=== PATIENT | female | born 1940 | race Caucasian/White ===

== ENCOUNTER 2019-03-20 22:14 | Inpatient (IN) | payer MEDICARE ==
[~2019-03-20] VITALS: Ht 162.6 cm; Wt 53.5 kg
--- NOTE | 2019-03-20 22:30 | NUR ---
Patient bib relatives for c/o weakness and urinary issues. Patient nonverbal and does not respond to command. Respiratory even and unlabored, no cough no sob. No cardiovascular distress noted.
[2019-03-20] MEDS ORDERED: OLME20TA13 PO (22:36)
[2019-03-20] MEDS ORDERED: ZOLP10TA6 PO (22:36)
[2019-03-20] MEDS ORDERED: MIRT15TA7 PO (22:36)
[2019-03-20] MEDS ORDERED: DONE5TAB34 PO (22:36)
[2019-03-20] MEDS ORDERED: LORA0.5T PO (22:36)
[2019-03-20] MEDS ORDERED: TRAZ-182 PO (22:36)
[2019-03-20] MEDS ORDERED: TRAM50TA2 PO (22:36)
[2019-03-20] MEDS ORDERED: CEFTRIAXONE 1 G VIAL ONE (22:44)
[2019-03-20] MEDS ORDERED: IV NORMAL SALINE 500 ML BAG IV ONE (22:45)
[2019-03-20] MEDS ORDERED: CEFTRIAXONE 1 G in IV DEXTROSE 5% 50 ML IV ONE (22:45)
[2019-03-20 22:57] LABS: BASOPHILS % (AUTO) 0.6 % (0.0-2.0); EOSINOPHILS % (AUTO) 0.5 % (0.0-7.0); HEMATOCRIT 34.6 % (31.2-41.9); HEMOGLOBIN 11.2 g/dL (10.9-14.3); LYMPHOCYTES # (AUTO) 1.3 K/uL (20.0-40.0); LYMPHOCYTES % (AUTO) 27.7 % (20.5-51.5); MEAN CORPUSCULAR HEMOGLOBIN 30.8 uug (24.7-32.8); MEAN CORPUSCULAR HGB CONC 33 g/dL (32.3-35.6); MEAN CORPUSCULAR VOLUME 94.9 fL (75.5-95.3); MONOCYTES # (AUTO) 0.3 K/uL (2.0-10.0); MONOCYTES % (AUTO) 6.5 % (0.0-11.0); NEUTROPHILS % (AUTO) 64.7 % (38.5-71.5); PLATELET COUNT (AUTO) 241 K/uL (179-408); RED BLOOD CELL COUNT(AUTO) 3.65 MIL/uL (3.63-4.92); WHITE BLOOD COUNT (AUTO) 4.7 K/uL (3.8-11.8)
[2019-03-20 23:04] LABS: CARBON DIOXIDE 28 mmol/L (21-32); CHLORIDE 110 mmol/L (98-107); CREATININE 1.1 mg/dL (0.6-1.3); GLUCOSE 133 mg/dL (74-106); POTASSIUM 4.5 mmol/L (3.5-5.1); UREA NITROGEN, BLOOD 29 mg/dL (7-18)
[2019-03-20 23:09] LABS: *BILIRUBIN,URIN NEGATIVE (NEGATIVE); *BLOOD, URINE NEGATIVE (NEGATIVE); *CLARITY,URINE CLOUDY (CLEAR); *COLOR,URINE YELLOW (YELLOW); *KETONES,URINE NEGATIVE (NEGATIVE); *UROBILINOGEN,URINE 0.2 E.U./dl (NORMAL); LEUKOCYTE ESTERASE ,URINE 1+ (NEGATIVE); NITRITE, URINE POSITIVE (NEGATIVE); UGLUCOSE NEGATIVE (NEGATIVE)
[2019-03-20 23:16] LABS: ALANINE AMINOTRANSFERASE 16 U/L (14-59); ALKALINE PHOSPHATASE 57 U/L (50-136); ASPARTATE AMINOTRANSFERASE 17 U/L (15-37); BILIRUBIN,DIRECT 0.2 mg/dL (0.0-0.2); BILIRUBIN,TOTAL 0.5 mg/dL (0.2-1.0); TOTAL PROTEIN, SERUM 7.4 g/dL (6.4-8.2)
[2019-03-20 23:25] LABS: RBC,URINE 0-3 /HPF (0-3)
[2019-03-20 23:26] LABS: BACTERIA,URINE MANY /HPF (NONE SEEN); SQUAMOUS EPITHELIAL CELL,UR FEW /HPF (NONE SEEN); WBC,URINE 80-100 /HPF (0-3)
--- NOTE | 2019-03-20 23:57 | NUR ---
[facility] contacted for pending CXR image.
--- NOTE | 2019-03-21 00:26 | NUR ---
Report given to RHODA Khalil
--- NOTE | 2019-03-21 00:27 | NUR ---
RECEIVED REPORT FROM CAITLIN BERNAL RN IN ER DEPARTMENT.
[2019-03-21] MEDS ORDERED: LORAZEPAM 0.5 MG TABLET PO PRN (00:30)
[2019-03-21] MEDS ORDERED: HYDROCODONE/APAP 5-325MG TABLET PO PRN (00:30)
[2019-03-21] MEDS ORDERED: ENOXAPARIN SODIUM 40 MG/0.4 ML DISP.SYRIN SQ SCH (00:30)
[2019-03-21] MEDS ORDERED: Z GUARD REMEDY PASTE 57 GM TUBE TOP PRN (00:30)
[2019-03-21] MEDS ORDERED: ACETAMINOPHEN 325 MG TABLET PO PRN (00:30)
[2019-03-21] MEDS ORDERED: TRAMADOL HCL 50 MG TABLET PO PRN (00:30)
[2019-03-21] MEDS ORDERED: ONDANSETRON 4 MG/2 ML VIAL IV PRN (00:30)
[2019-03-21] MEDS ORDERED: MAGNESIUM HYDROXIDE 30 ML LIQUID UDC PO PRN (00:30)
--- NOTE | 2019-03-21 00:40 | NUR ---
Patient transferred to [facility] in stable condition.
--- NOTE | 2019-03-21 00:50 | NUR ---
PATIENT ARRIVED TO UNIT [facility]IA [place] WITH RN, CAITLIN BERNAL.
[2019-03-21 01:00] VITALS: BP 126/53
[2019-03-21] MEDS: IV NS 1000 ML 1,000 ML IV PRN ×2 (01:17→20:09)
--- NOTE | 2019-03-21 01:28 | NUR ---
VERIFIED WITH RN, CAITLIN BERNAL FROM ER REGARDING PATIENT'S HEART RATE. UPON ASSESSMENT AND ARRIVAL TO THE UNIT, PATIENT HEART RATE WILL DROP INTO HIGH 40S BUT RETURN TO HIGH 50S. HEART RATE FLUCTUATIONS ARE NOT SUSTAINABLE AND CONTINUES TO INCREASE AND DECREASE. DR. PRESTON FROM ER OVERHEARD CONVERSATIONS ABOUT ADMITTED PATIENT AND STATED THAT "HEART RATE IS FINE LONG PATIENT HAS AN ACCEPTABLE BLOOD PRESSURE." UPON ARRIVAL PATIENTS BP WAS 126/53 AND SATURATING AT 100%. PATIENT INITIALLY AROUSABLE TO PAINFUL STIMULI. CHEST RUB AND COLD WASH CLOTH TO THE FACE AROUSES THE PATIENTS AND ABLE TO OPEN EYES. PATIENT IS STILL VERY LETHARGIC AND WEAK. ORDERS OF FLUIDS HAVE BEEN INITIATED. WILL CONTINUE TO MONITOR CLOSELY.
--- NOTE | 2019-03-21 01:30 | NUR ---
UPON ASSESSMENT, DIFFICULT TO OBTAIN INFORMATION FROM PATIENT DUE TO CONDITION.
--- NOTE | 2019-03-21 02:00 | NUR ---
CHARGE NURSE PAGED NATE JAIME NP. ABOUT PATIENTS LOW HR.
--- NOTE | 2019-03-21 03:51 | NUR ---
monster Ugalde NP. called back about patient status and is aware of patient low heart rate within the low 40s. no new orders.
[2019-03-21 05:45] VITALS: BP 118/68
--- NOTE | 2019-03-21 06:17 | NUR ---
admitted patient to telemetry unit. Patient on patcher helper showing sinus bradycardia. Patient slept through out the shift and is weak. patient unable to to communicate due to condition. Patient is weak and unable to ambulate at this time. Patient vital signs are WNL and no signs of fever. Onofre Ugalde aware of patients HR and no new orders have been placed. Will endorse plan of care to oncoming day shift nurse.
[2019-03-21] MEDS ORDERED: ZOLPIDEM 5 MG TABLET PO PRN (07:15)
[2019-03-21 07:16] LABS: BASOPHILS % (AUTO) 0.9 % (0.0-2.0); EOSINOPHILS # (AUTO) 0.1 K/uL (0.0-0.7); EOSINOPHILS % (AUTO) 1.6 % (0.0-7.0); HEMATOCRIT 31.8 % (31.2-41.9); HEMOGLOBIN 10.6 g/dL (10.9-14.3); LYMPHOCYTES # (AUTO) 1.4 K/uL (20.0-40.0); LYMPHOCYTES % (AUTO) 34.3 % (20.5-51.5); MEAN CORPUSCULAR HEMOGLOBIN 31.6 uug (24.7-32.8); MEAN CORPUSCULAR HGB CONC 33 g/dL (32.3-35.6); MEAN CORPUSCULAR VOLUME 94.9 fL (75.5-95.3); MONOCYTES # (AUTO) 0.3 K/uL (2.0-10.0); MONOCYTES % (AUTO) 7.3 % (0.0-11.0); NEUTROPHILS # (AUTO) 2.3 K/uL (1.8-8.9); NEUTROPHILS % (AUTO) 55.9 % (38.5-71.5); PLATELET COUNT (AUTO) 201 K/uL (179-408); RED BLOOD CELL COUNT(AUTO) 3.35 MIL/uL (3.63-4.92); WHITE BLOOD COUNT (AUTO) 4.1 K/uL (3.8-11.8)
[2019-03-21 07:52] LABS: THYROID STIMULATING HORMONE 2.104 mIU/mL (0.358-3.740)
[2019-03-21 08:00] VITALS: BP 125/59
[2019-03-21 08:43] LABS: CARBON DIOXIDE 26 mmol/L (21-32); CHLORIDE 114 mmol/L (98-107); CHOLESTEROL 156 mg/dL (<200); CREATININE 0.9 mg/dL (0.6-1.3); GLUCOSE 113 mg/dL (74-106); HDL CHOLESTEROL 51 mg/dL (40-60); MAGNESIUM 2.1 mg/dL (1.8-2.4); PHOSPHOROUS 3.1 mg/dL (2.5-4.9); POTASSIUM 4.6 mmol/L (3.5-5.1); TRIGLYCERIDES 82 MG/DL (30-150); UREA NITROGEN, BLOOD 27 mg/dL (7-18)
[2019-03-21] MEDS: MIRTAZAPINE 15 MG TABLET PO SCH (08:52)
[2019-03-21] MEDS: DONEPEZIL 5 MG TABLET PO SCH (08:53)
[2019-03-21] MEDS: LOSARTAN POTASSIUM 50 MG TABLET PO SCH (08:53)
[2019-03-21] MEDS ORDERED: Medication Not On Formulary EA (Olmesartan Medoxomil (Benicar) 20 MG) PO SCH (09:00)
[2019-03-21 11:10] VITALS: BP 90/51
[2019-03-21 15:09] VITALS: BP 101/62
[2019-03-21 20:00] VITALS: BP 127/56
[2019-03-21] MEDS: CEFTRIAXONE 1 G in IV DEXTROSE 5% 50 ML IV SCH (20:08)
[2019-03-21] MEDS: TRAZODONE 50 MG TABLET PO SCH (20:15)
[2019-03-21] MEDS: ENOXAPARIN SODIUM 40 MG/0.4 ML DISP.SYRIN SQ SCH (20:18)
[2019-03-22] VITALS: BP 130/58
[2019-03-22 04:00] VITALS: BP 126/88
[2019-03-22 06:50] LABS: BASOPHILS % (AUTO) 1.1 % (0.0-2.0); EOSINOPHILS # (AUTO) 0.1 K/uL (0.0-0.7); EOSINOPHILS % (AUTO) 1.6 % (0.0-7.0); HEMATOCRIT 29.9 % (31.2-41.9); HEMOGLOBIN 10.1 g/dL (10.9-14.3); LYMPHOCYTES # (AUTO) 1.2 K/uL (20.0-40.0); LYMPHOCYTES % (AUTO) 27.1 % (20.5-51.5); MEAN CORPUSCULAR HEMOGLOBIN 31.7 uug (24.7-32.8); MEAN CORPUSCULAR HGB CONC 34 g/dL (32.3-35.6); MEAN CORPUSCULAR VOLUME 94.4 fL (75.5-95.3); MONOCYTES # (AUTO) 0.3 K/uL (2.0-10.0); MONOCYTES % (AUTO) 6.5 % (0.0-11.0); NEUTROPHILS # (AUTO) 2.8 K/uL (1.8-8.9); NEUTROPHILS % (AUTO) 63.7 % (38.5-71.5); PLATELET COUNT (AUTO) 196 K/uL (179-408); RED BLOOD CELL COUNT(AUTO) 3.17 MIL/uL (3.63-4.92); WHITE BLOOD COUNT (AUTO) 4.4 K/uL (3.8-11.8)
[2019-03-22 06:52] LABS: CARBON DIOXIDE 26 mmol/L (21-32); CHLORIDE 114 mmol/L (98-107); CREATININE 0.9 mg/dL (0.6-1.3); GLUCOSE 90 mg/dL (74-106); POTASSIUM 3.5 mmol/L (3.5-5.1); UREA NITROGEN, BLOOD 21 mg/dL (7-18)
[2019-03-22] MEDS: LOSARTAN POTASSIUM 50 MG TABLET PO SCH (08:14)
[2019-03-22] MEDS: MIRTAZAPINE 15 MG TABLET PO SCH (08:15)
[2019-03-22] MEDS: DONEPEZIL 5 MG TABLET PO SCH (08:15)
[2019-03-22] MEDS: IV 1/2NS 1000 ML 1,000 ML IV PRN (10:23)
[2019-03-22 11:38] VITALS: BP 130/55
--- NOTE | 2019-03-22 14:22 | NUR ---
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 PT NOTED TO HAVE CONTRACTED LOWER EXTREMITIES. PT IS VERY THIN AND BONY. RECOMMEND SURGICAL CONSULT. DR WARE NOTIFIED OF SURGICAL CONSULT REQUEST. FIRST STEP LOW AIRLOSS MATTRESS ORDERED. ALL SKIN PROTECTION AND WOUND RECOMMENDATIONS DISCUSSED WITH NURSING STAFF. WILL SEE PRN. IN AGREEMENT WITH PLAN OF CARE.
[2019-03-22 16:01] VITALS: BP 117/51
[2019-03-22] MEDS: ENOXAPARIN SODIUM 40 MG/0.4 ML DISP.SYRIN SQ SCH (20:02)
[2019-03-22] MEDS: TRAZODONE 50 MG TABLET PO SCH (20:02)
[2019-03-22] MEDS: CEFTRIAXONE 1 G in IV DEXTROSE 5% 50 ML IV SCH (20:03)
[2019-03-22 20:42] VITALS: BP 138/48
--- NOTE | 2019-03-23 05:12 | NUR ---
Patient rested well in between care; no acute distress; remains on mittens; released q2h but pt remains on pulling IV; pt is for debridement of sacral wound for which consent was taken from pt's family. hourly rounding done; continue to monitor; continue plan of care.
[2019-03-23 05:13] VITALS: BP 127/61
[2019-03-23 06:48] LABS: CARBON DIOXIDE 25 mmol/L (21-32); CHLORIDE 113 mmol/L (98-107); GLUCOSE 103 mg/dL (74-106); POTASSIUM 3.8 mmol/L (3.5-5.1); UREA NITROGEN, BLOOD 20 mg/dL (7-18)
[2019-03-23] MEDS: IV 1/2NS 1000 ML 1,000 ML IV PRN ×2 (07:30→19:51)
[2019-03-23] MEDS: MIRTAZAPINE 15 MG TABLET PO SCH (08:50)
[2019-03-23] MEDS: LOSARTAN POTASSIUM 50 MG TABLET PO SCH (08:53)
[2019-03-23] MEDS: DONEPEZIL 5 MG TABLET PO SCH (08:53)
[2019-03-23 11:08] VITALS: BP 103/52
[2019-03-23 15:34] VITALS: BP 119/50
--- NOTE | 2019-03-23 18:33 | NUR ---
Patient is confused but cooperative with treatment, garbled speech, no acute distress; remains on mittens; released q2h but pt remains on pulling IV; wound care is done, hourly rounding done; safety maintained
--- NOTE | 2019-03-23 20:00 | NUR ---
RECEIVED PATIENT AWAKE AND SITTING UP IN BED. PATIENT IS APHASIAC SO UNABLE TO DETERMINE ORIENTATION BUT DOES RESPOND WHEN CALLED BY NAME. PATIENT HAS BILATERAL SOFT MITTENS TO KEEP FROM PULLING OUT IV LINES. ALL SAFETY, FALL PRECAUTIONS, AND ISOLATION PRECAUTIONS ARE IN PLACE. DIASTOLIC PRESSURE IS LOW, SO ELEVATED FOOT OF BED TO INCREASE BLOOD RETURN. CALL LIGHT AND PERSONAL ITEMS ARE WITHIN REACH AT ALL TIMES. WILL CONTINUE TO MONITOR.
[2019-03-23 20:02] VITALS: BP 128/53
[2019-03-23] MEDS: TRAZODONE 50 MG TABLET PO SCH (20:41)
[2019-03-23] MEDS: ENOXAPARIN SODIUM 40 MG/0.4 ML DISP.SYRIN SQ SCH (20:42)
[2019-03-23] MEDS: MEROPENEM 1 G in IV NORMAL SALINE 100 ML IV SCH (21:29)
[2019-03-24 04:28] VITALS: BP 141/65
[2019-03-24] MEDS: MEROPENEM 1 G in IV NORMAL SALINE 100 ML IV SCH ×3 (05:02→22:03)
--- NOTE | 2019-03-24 06:00 | NUR ---
PATIENT SLEPT COMFORTABLY THROUGHOUT NIGHT WITH NO INTERRUPTIONS IN SLEEP. PATIENT WAS COOPERATIVE WITH ALL NURSING CARE AND PRESCRIBED MEDICATION REGIMEN. IV ANTIBIOTICS WERE INFUSED ORDERED WITH NO ADVERSE SIDE EFFECTS NOTED OR OBSERVED. ALL SAFETY, FALL, AND ISOLATION PRECAUTIONS REMAIN IN PLACE. CALL LIGHT AND PERSONAL ITEMS REMAIN WITHIN REACH AT ALL TIMES. WILL PROVIDE REPORT TO ONCOMING SHIFT.
--- NOTE | 2019-03-24 07:10 | NUR ---
RECEIVED PATIENT ALERT AND ORIENTED X1 WITH NO SOB AND AND NO S/S OF PAIN. IV INTACT AND PATENT. PATIENT HAS SOFT RESTRAINT MITTEN FOR SAFETY. PATIENT HAS BEEN COOPERATIVE WITH CARE. SAFETY AND COMFORT PROVIDED AT ALL TIMES. WILL CONTINUE TREATMENT PLAN.
[2019-03-24 07:38] LABS: CARBON DIOXIDE 27 mmol/L (21-32); CHLORIDE 113 mmol/L (98-107); GLUCOSE 100 mg/dL (74-106); POTASSIUM 3.5 mmol/L (3.5-5.1); UREA NITROGEN, BLOOD 14 mg/dL (7-18)
[2019-03-24] MEDS: DONEPEZIL 5 MG TABLET PO SCH (09:10)
[2019-03-24] MEDS: ASCORBIC ACID 500 MG TABLET PO SCH (09:10)
[2019-03-24] MEDS: ZINC SULFATE 220 MG CAPSULE PO SCH (09:10)
[2019-03-24] MEDS: MIRTAZAPINE 15 MG TABLET PO SCH (09:10)
[2019-03-24] MEDS: LOSARTAN POTASSIUM 50 MG TABLET PO SCH (09:11)
[2019-03-24 11:32] VITALS: BP 119/56
[2019-03-24] MEDS: IV 1/2NS 1000 ML 1,000 ML IV PRN (11:39)
[2019-03-24 15:42] VITALS: BP 128/42
--- NOTE | 2019-03-24 18:30 | NUR ---
PATIENT ALERT AND ORIENTED X1 WITH NO SOB AND NO C/O PAIN AT THIS TIME. PATIENT WITH SOFT RESTRAINT MITTENS, IV INTACT AND PATENT. PATIENT IS COOPERATIVE WITH CARE. SAFETY AND COMFORT PROVIDED AT ALL TIMES. WILL CONTINUE TREATMENT PLAN.
[2019-03-24 19:59] VITALS: BP 120/48
--- NOTE | 2019-03-24 20:00 | NUR ---
Received pt. resting in bed awake, oriented to name, but aphasic. Pt. has IV in left forearm patent, intact, 20 gauge wrapped in kerlix due to pt. attempting to pull at line. Pt. has bilateral soft mittens on. Will assess every 2 hours. Pt. is cooperative with care. Isolation precautions in place. Safety measures in place. Will continue to monitor.
[2019-03-24] MEDS: TRAZODONE 50 MG TABLET PO SCH (20:27)
[2019-03-24] MEDS: ENOXAPARIN SODIUM 40 MG/0.4 ML DISP.SYRIN SQ SCH (20:28)
[2019-03-25 04:42] VITALS: BP 114/43
[2019-03-25] MEDS: IV 1/2NS 1000 ML 1,000 ML IV PRN (04:55)
[2019-03-25] MEDS: MEROPENEM 1 G in IV NORMAL SALINE 100 ML IV SCH ×2 (05:00→13:08)
--- NOTE | 2019-03-25 06:47 | NUR ---
Pt. resting in bed alert oriented to self. Pt. is in no acute distress. Pt has bilateral soft mittens on on air mattress. Reassessed every 2 hours. Pt. is attempting to pull at lines throughout night. New IV started on R forearm 22 gauge due to redness on left forearm at IV site. Put ice on forearm as redness subsided. Used ice packs to cool pt. down due to temp of 99.3 F. Cleaned sacral wound and added hydrogel and mepilex. Safety measures in place. Will endorse to AM shift
--- NOTE | 2019-03-25 07:30 | NUR ---
Received patient awake in bed. AAOx1. Patient is nonverbal and sometimes mumbles. Patient has bilateral soft mittens for safety. Cooperative and compliant with care. No acute distress at this time. IV on R FA intact and patent with IVF running. Sacral pressure noted and scab on right elbow and knee noted. Isolation precautions in place for ESBL in the urine. Comfort provided. Safety measures implemented. Will continue to monitor.
[2019-03-25] MEDS: MIRTAZAPINE 15 MG TABLET PO SCH (08:42)
[2019-03-25] MEDS: ZINC SULFATE 220 MG CAPSULE PO SCH (08:42)
[2019-03-25] MEDS: ASCORBIC ACID 500 MG TABLET PO SCH (08:43)
[2019-03-25] MEDS: DONEPEZIL 5 MG TABLET PO SCH (08:43)
[2019-03-25] MEDS: LOSARTAN POTASSIUM 50 MG TABLET PO SCH (08:52)
[2019-03-25 11:32] VITALS: BP 112/58
[2019-03-25] MEDS ORDERED: IV D5W 1000ML 1,000 ML IV ONE (12:30)
--- NOTE | 2019-03-25 14:12 | NUR ---
Spoke to JOSEPH Eid on the phone. Stated that she does not want to continue with the debridement scheduled for today.
--- NOTE | 2019-03-25 14:16 | NUR ---
Seen by occupational therapist
[2019-03-25 15:19] VITALS: BP 110/53
--- NOTE | 2019-03-25 17:20 | NUR ---
Patient discharged via ambulance to [facility]. Vitals stable. No acute distress. No change in status. Patient AAOx1, nonverbal. Report given to receiving staff at nursing center. DPOA, daughter in law notified. Comfort provided at all times. Safety measures implemented. Plan of care endorsed.
== END 2019-03-25 17:11 | DRG 689 ==
LOC: ER 22:14 → TELE3 03-21 00:34 → MEDSURG3 03-22 10:24
PROVIDERS: ADMIT Nurse Practitioner Acute Care
DX: N39.0 Urinary tract infection, site not specified (principal); L89.153 Pressure ulcer of sacral region, stage 3; G93.41 Metabolic encephalopathy; E87.0 Hyperosmolality and hypernatremia; E44.1 Mild protein-calorie malnutrition; F03.90 Unspecified dementia, unspecified severity, without behavioral disturbance, psychotic disturbance, mood disturbance, and anxiety; B96.20 Unspecified Escherichia coli [E. coli] as the cause of diseases classified elsewhere; Z16.12 Extended spectrum beta lactamase (ESBL) resistance; F32.9 Major depressive disorder, single episode, unspecified; F41.9 Anxiety disorder, unspecified; Z68.20 Body mass index [BMI] 20.0-20.9, adult
CPT/HCPCS: 36415; 70030-TC; 71045; 83605; 83735; 84100; 84443; 85025; 85730; 87040; 87077; 87086; 92526; 92610; 93005; 97112; 97165; 97530; A4663; C1758; G0378; J0696; J1650; J2185; J3490; J7030; J7060